=== PATIENT | male | born 1980 | race Caucasian/White ===

== ENCOUNTER 2021-12-19 07:58 | Emergency (ER) | payer OTHER ==
[~2021-12-19] VITALS: Ht 175.3 cm; Wt 87.1 kg
[2021-12-19] MEDS ORDERED: GABAPENTIN100 M2 PO (09:56)
[2021-12-19] MEDS ORDERED: CAPSAICIN42.5 GM TOP (09:56)
[2021-12-19] MEDS ORDERED: ZOVIRAX800 MG PO (09:56)
== END 2021-12-19 10:05 | disposition home or self-care (01) ==
LOC: ER 07:58
DX: B02.9 Zoster without complications (principal)

== ENCOUNTER 2023-02-20 17:07 | Emergency (ER) | payer OTHER ==
[~2023-02-20] VITALS: Ht 175.3 cm; Wt 85.3 kg
[~2023-02-20 17:07] MED LIST: CAPSAICIN42.5 GM TOP; GABAPENTIN100 M2 PO; ZOVIRAX800 MG PO
== END 2023-02-20 21:14 | disposition home or self-care (01) ==
LOC: ER 17:07
DX: L03.116 Cellulitis of left lower limb (principal); M79.662 Pain in left lower leg

== ENCOUNTER 2023-02-21 07:31 | Emergency (ER) | payer OTHER ==
[~2023-02-21] VITALS: Ht 175.3 cm; Wt 85.3 kg
== END 2023-02-21 15:44 | disposition home or self-care (01) ==
LOC: ER 07:31
DX: M79.89 Other specified soft tissue disorders (principal); L53.8 Other specified erythematous conditions; R50.9 Fever, unspecified; T85.79XA Infection and inflammatory reaction due to other internal prosthetic devices, implants and grafts, initial encounter
CPT/HCPCS: 36415; 73701; 93971; Q9965